=== PATIENT | male | born 1955 | race Caucasian/White ===

== ENCOUNTER → 2017-05-14 | Outpatient (CLI) | payer BC ==
[2017-05-14 08:03] LABS: Basophils # (A) 0.1 k/uL (0-0.2); Basophils % (A) 1 %; CH 33.8; CHCM 34.1; Eosinophils # (A) 0.1 k/uL (0-0.7); Eosinophils % (A) 2 %; HCT 41.1 % (39.0-53.0); HDW 2.37; HGB 13.7 gm/dL (13.0-17.5); Luc % (Auto) 4; Lymphocytes # (A) 1.5 k/uL (1.0-4.8); Lymphocytes % (A) 31 %; MCH 33.1 pg (25.0-35.0); MCHC 33.2 g/dL (31.0-37.0); MCV 99.6 fL (80.0-100.0); Mean Platelet Volume 7.2; Monocytes # (A) 0.4 k/uL (0-1.0); Monocytes % (A) 8 %; Neutrophils # (A) 2.6 k/uL (1.3-7.7); Neutrophils % (A) 53 %; RBC 4.13 m/uL (4.30-5.90); WBC 4.8 k/uL (3.8-10.6)
[2017-05-14 09:10] LABS: ALT 35 U/L (21-72); AST 23 U/L (17-59); Alkaline Phosphatase 52 U/L (38-126); Anion Gap 7 mmol/L; Blood Urea Nitrogen 16 mg/dL (9-20); Carbon Dioxide 28 mmol/L (22-30); Chloride 107 mmol/L (98-107); Cholesterol 179 mg/dL (<200); Glucose 92 mg/dL (74-99); HDL Cholesterol 60 mg/dL (40-60); Non-African American GFR(MDRD) >60 (>60 ml/min/1.73 sqM); Potassium 4.4 mmol/L (3.5-5.1); Sodium 142 mmol/L (137-145); Total Bilirubin 0.8 mg/dL (0.2-1.3); Total Protein 6.8 g/dL (6.3-8.2); Triglycerides 70 mg/dL (<150)
[2017-05-14 09:58] LABS: Hepatitis C Virus IgG Ab Negative (Negative); Hepatitis C Virus IgG Index 0.24
[2017-05-14 11:27] LABS: Prostate Specific Antigen 0.53 ng/mL (0.00-4.00)
== END | disposition home or self-care (01) ==
LOC: LABWHC1 07:09
PROVIDERS: ATTEND Family Medicine
DX: Z00.01 Encounter for general adult medical examination with abnormal findings (principal); Z13.9 Encounter for screening, unspecified
CPT/HCPCS: 36415; 80053; 80061; 84153; 85025; 86803

== ENCOUNTER → 2018-08-14 | Outpatient (CLI) | payer BC ==
[2018-08-14 08:33] LABS: HCT 44.4 % (39.0-53.0); HGB 14.3 gm/dL (13.0-17.5); MCH 33.2 pg (25.0-35.0); MCHC 32.2 g/dL (31.0-37.0); MCV 103.1 fL (80.0-100.0); Macrocytosis Slight; Mean Platelet Volume 6.7; Platelet Count 242 k/uL (150-450); RDW 13.7 % (11.5-15.5); WBC 4.7 k/uL (3.8-10.6)
[2018-08-14 09:03] LABS: Appearance,Urine Clear (Clear); Bilirubin,Urine Negative (Negative); Blood,Urine Negative (Negative); Color,Urine Yellow; Glucose,Urine (UA) Negative (Negative); Ketones,Urine Negative (Negative); Leukocyte Esterase,Urine Negative (Negative); Nitrite,Urine Negative (Negative); Protein,Urine Negative (Negative); Urobilinogen,Urine <2.0 mg/dL (<2.0)
[2018-08-14 10:07] LABS: ALT 33 U/L (21-72); AST 22 U/L (17-59); Albumin 4.1 g/dL (3.5-5.0); Alkaline Phosphatase 53 U/L (38-126); Anion Gap 7 mmol/L; Blood Urea Nitrogen 17 mg/dL (9-20); Calcium 9.2 mg/dL (8.4-10.2); Carbon Dioxide 28 mmol/L (22-30); Chloride 107 mmol/L (98-107); Cholesterol 182 mg/dL (<200); Glucose 94 mg/dL (74-99); HDL Cholesterol 58 mg/dL (40-60); LDL Cholesterol,Calculated 110 mg/dL (0-99); Potassium 4.4 mmol/L (3.5-5.1); Sodium 142 mmol/L (137-145); Total Bilirubin 0.6 mg/dL (0.2-1.3); Total Protein 6.9 g/dL (6.3-8.2); Triglycerides 69 mg/dL (<150)
[2018-08-14 10:34] LABS: Prostate Specific Antigen 0.74 ng/mL (0.00-4.00)
== END | disposition home or self-care (01) ==
LOC: LABWHC1 07:41
PROVIDERS: ATTEND Family Medicine
DX: Z00.01 Encounter for general adult medical examination with abnormal findings (principal); R53.81 Other malaise
CPT/HCPCS: 36415; 80053; 80061; 81003; 82306; 84153; 85027

== ENCOUNTER → 2019-03-11 | Outpatient (CLI) | payer BC ==
--- NOTE | 2019-03-11 15:33 | CONS ---
CONSULTATION DATE OF SERVICE: 03/11/2019 The is a 63-year-old gentleman who has been evaluated in the Sleep Center for possible obstructive sleep apnea-hypopnea syndrome and restless legs syndrome. HISTORY OF PRESENT ILLNESS/SLEEP-WAKE EVALUATION: Patient usual sleep schedule from 10 p.m. to 5:30 a.m. Sometimes he has problem with falling asleep. Has TV set in bedroom. He sleeps on the side position with loud snoring and witnessed episodes of stopped breathing during the sleep. The patient wakes up from sleep 2 times with nocturia and has symptoms of restless legs while falling asleep and also during the night. During the day, patient feels sleepy, has problem with concentration. [place] Sleepiness Scale significantly increased to 10. PAST MEDICAL HISTORY: Positive for anxiety, BPH. MEDICATIONS: None. SOCIAL HISTORY: Positive for smoking about half pack a day for 15 years. Quit about 30 years ago. Alcohol consumption rarely. FAMILY HISTORY: Positive for sleep apnea by his sisters. Positive history of hypertension and stroke, headaches in the family. REVIEW OF SYSTEMS: Awakenings from sleep, sleepiness during the day. PHYSICAL EXAM: gentleman without distress BP 102/64, HR 84, RR 16, height 5 feet 11-1/2 inches, weight 192 pounds. Body mass index 26.4, temperature 97.6, oxygen saturation at room air 97%. OROPHARYNX: Low position of soft palate. Mallampati 4. Restriction of nasal breathing even with slight restriction of nasal breathing bilaterally. NECK: 15 inches in circumference on the physical exam. LUNGS Clear to percussion and to auscultation. Good air exchange. No wheezing or rhonchi. HEART S1, S2 regular. No murmurs, gallops, or rubs. ABDOMEN Soft and nontender. Bowel sounds are present. No organomegaly appreciated. EXTREMITIES No clubbing or cyanosis. INTELLIGENCE DIRECTOR Awake, alert, and oriented X3. Cranial nerves 2 to 7 intact. There is no fasciculation or atrophy. noted. No focal deficits observed. IMPRESSION: 1. Snoring, witnessed episodes of stopped breathing during the sleep, low position of soft palate, multiple awakenings from sleep sleepiness, obstructive sleep apnea- hypopnea syndrome. 2. History of anxiety. Three restless leg symptoms to at night and toe. 3. History of kicking at night periodic limb movement syndrome. 4. BPH. PLAN: 1. Home sleep apnea test for checking of patient's breathing during the sleep. If home sleep apnea test will be negative, polysomnography checking patient's breathing and also to check for restless leg and periodic limb movements. 2. CPAP/BiPAP titration if sleep study confirms obstructive sleep apnea-hypopnea syndrome. 3. Preferable position during sleep on the side. 4. No driving if patient feels any sleepiness. 5. I will see patient for follow up visit to explain results of testing and following plan. Sincerely, Vini Fox MD, PhD, FAASM Diplomat of [employer] Board of Internal Medicine Scaleman of [facility] [place] MMODL / IJN: [id number] /
== END ==
LOC: SLEEP 13:52
PROVIDERS: ATTEND Internal Medicine
DX: G47.33 Obstructive sleep apnea (adult) (pediatric) (principal); G47.61 Periodic limb movement disorder; F41.9 Anxiety disorder, unspecified; N40.0 Benign prostatic hyperplasia without lower urinary tract symptoms; Z87.891 Personal history of nicotine dependence
CPT/HCPCS: 99211

== ENCOUNTER → 2019-07-01 | Outpatient (CLI) | payer BC ==
--- NOTE | 2019-07-01 12:25 | SFUN ---
SLEEP CENTER FOLLOW UP NOTE DATE OF SERVICE: 07/01/2019: A 64-year-old gentleman who has been followed in the Sleep Center for treatment of obstructive sleep apnea-hypopnea syndrome. Recently patient had a home sleep apnea test which showed apnea-hypopnea index 25, and after that patient was started on treatment with AutoPAP. With AutoPAP therapy, patient feel blowing of the air in the abdomen and still sometimes wakes up from sleep with the machine, feel less sleepy than before but still feels sometimes sleepiness. I checked his CPAP unit. Usage is every night 100% and 100% of the time more than 4 hours with average usage 6 hours and 41 minutes. Range of the pressure 5-20 with median pressure 10.7, 95% at 17.0 and maximal 18.8. Apnea-hypopnea index up to 6.1. MEDICATIONS: Occasional Xanax, terazosin. PHYSICAL EXAM: Patient in no distress. BP 99/61, HR 60, RR 16, weight 192, temp 97.4, oxygen saturation at room air 97%. OROPHARYNX: Low position of soft palate. Mallampati 3. Neck Supple, no JVD. Thyroid is not palpable. LUNGS Clear to percussion and to auscultation. Good air exchange. No wheezing or rhonchi. HEART S1, S2 regular. No murmurs, gallops, or rubs. ABDOMEN Soft and nontender. Bowel sounds are present. No organomegaly appreciated. EXTREMITIES No clubbing or cyanosis. INSPECTOR INSULATION Awake, alert, and oriented X3. Cranial nerves 2 to 7 intact. There is no fasciculation or atrophy. noted. No focal deficits observed. IMPRESSION: 1. Moderate obstructive sleep apnea-hypopnea syndrome; apnea-hypopnea index 25 with a 25 central apneas by results of home sleep apnea test on treatment with AutoPap. Patient demonstrated 100% compliance with treatment, but had problems related to the pressure feeling air in his stomach. 2. History of anxiety. 3. Benign prostatic hypertrophy. 4. History of restless leg symptoms improvements at night. PLAN: 1. CPAP titration for evaluation of effective CPAP pressure because patient has some problems without AutoPAP machine and also to check for periodic limb movements. Fitting patient with proper mask because sometimes there is significant leak from the mask. 2. Sleep hygiene with time in bed for 7-1/2, 8 hours. 3. Regards daily to driving. No driving if feeling sleepiness. Thank you very much for allowing me to participate in the management of your patient. Sincerely, Vini Fox MD, PhD, FAASM Diplomat of [employer]ties [employer] Board of Internal Medicine Eye Physician of [facility] [place] MMODL / CARLTONN: [id number] /
== END ==
LOC: SLEEP 11:11
PROVIDERS: ATTEND Internal Medicine
DX: G47.33 Obstructive sleep apnea (adult) (pediatric) (principal); F41.9 Anxiety disorder, unspecified; N40.0 Benign prostatic hyperplasia without lower urinary tract symptoms; G25.81 Restless legs syndrome; Z79.899 Other long term (current) drug therapy

== ENCOUNTER → 2019-08-26 | Outpatient (CLI) | payer BC ==
--- NOTE | 2019-08-26 18:50 | PN ---
PROGRESS NOTE DATE OF SERVICE: 08/26/2019 This patient is a 64-year-old gentleman who has been followed in Sleep Center for treatment of obstructive sleep apnea-hypopnea syndrome. Home sleep apnea test showed obstructive sleep apnea-hypopnea syndrome with apnea-hypopnea index of 25.0. Then patient was started on treatment with AutoPAP with a maximal pressure of 20, and the patient did not tolerate treatment with AutoPAP. He developed discomfort in the chest. We did CPAP titration. During titration, at the pressure 8 cm of water patient's respiration was absolutely normal, and I ordered for him CPAP treatment with a pressure of 8 cm of water. At present the patient is able to use CPAP equipment without any discomfort in the chest, but occasionally he still snores with the machine, according to his . I checked his CPAP unit. CPAP pressure is 8 cm of water. Usage is 28 out of 30 nights, and 26/30 nights for more than 4 hours, with average usage 6.5 hours per night, pressure 7.9 cm of water. Leak is 0 L/minute. Apnea-hypopnea index reading for the last month is 12.7; for the last night 10.8; and total apnea index 9.6; central apnea index 2.7. [place] Sleepiness Scale is 4. MEDICATIONS: Terazosin and Xanax on p.r.n. basis. PHYSICAL EXAMINATION: GENERAL: A pleasant patient in no distress. VITAL SIGNS: BP 105/66, HR 64, RR 16, weight 192, temperature 97.4, oxygen saturation at room air 98%. HEENT: PERRLA, EOMI. Evaluation of oropharynx showed tongue protrudes midline. Low position of soft palate. Mallampati III. NECK: Supple. No JVD. Thyroid is not palpable. LUNGS: Clear to percussion and to auscultation. Good air exchange. No wheezing or rhonchi. HEART: S1, S2 regular. No murmurs, gallops or rubs. ABDOMEN: Soft. No tenderness. EXTREMITIES: No clubbing or cyanosis. ARTISTS' BOOKING REPRESENTATIVE: Awake, alert, and oriented X3. Cranial nerves 2 to 7 intact. There is no fasciculation or atrophy. noted. No focal deficits observed. IMPRESSION: 1. Moderate obstructive sleep apnea-hypopnea syndrome; apnea-hypopnea index 25.0 with 25 central apneas by results of home sleep apnea test, improved on treatment with CPAP at the pressure 8 cm of water. Patient demonstrated great compliance with treatment, benefitting from treatment, but at present his apnea-hypopnea index is still above normal at 12.7 for the last month. 2. Severe periodic limb movements during titration. 3. History of anxiety. 4. History of benign prostatic hypertrophy. 5. History of restless leg symptoms. PLAN: 1. I will change the regimen in his machine to automatic to the maximal pressure of 11 cm of water. 2. The patient will continue to use equipment every night for the whole night. 3. Sleep hygiene with regular time in bed for at least 7-1/2 to 8 hours. 4. No driving if feeling any sleepiness. Thank you very much for allowing me to participate in the management of your patient. Sincerely, Vini Fox MD, PhD, FAASM Diplomat of [employer] Board [employer] Specialties [employer] Board of Internal Medicine Regulatory Affairs Spec of [facility] [place] MMODL / CARLTONN: [id number] /
== END | disposition home or self-care (01) ==
LOC: SLEEP 16:04
PROVIDERS: ATTEND Internal Medicine
DX: G47.33 Obstructive sleep apnea (adult) (pediatric) (principal); Z86.59 Personal history of other mental and behavioral disorders; Z87.438 Personal history of other diseases of male genital organs; Z87.39 Personal history of other diseases of the musculoskeletal system and connective tissue; Z99.89 Dependence on other enabling machines and devices; Z79.899 Other long term (current) drug therapy

== ENCOUNTER → 2021-05-02 | Outpatient (CLI) | payer MEDICARE ==
--- NOTE | 2021-05-02 21:48 | SFUN ---
SLEEP CENTER FOLLOW UP NOTE DATE OF SERVICE: 05/02/2021 65-year-old gentleman who has been followed in Sleep Center for treatment of obstructive sleep apnea-hypopnea syndrome. Last time I saw patient about one and one half years ago. The patient continues to use his CPAP equipment every night. [place] Sleepiness Scale today is 8. I checked CPAP unit. Range of the pressure 5-11. Usage is 30/30 nights for more than 4 hours. Average usage is 6.8 hours per night. Leak is 6 L/minute. Apnea-hypopnea index is 6.1, which is slightly above normal range. MEDICATIONS: 8 mg once a day. PHYSICAL EXAMINATION: GENERAL: gentleman without distress. BP 121/61, HR 68, RR 15, height 5 feet 1-1/2 inches, weight 196.6, body mass index 25.4, temperature 97.7, oxygen saturation at room air 98%. HEENT: PERRLA, EOMI. Oropharynx low position of soft palate. Mallampati 3. NECK: Supple, no JVD. Thyroid is not palpable. LUNGS: Clear to percussion and to auscultation. Good air exchange. No wheezing or rhonchi. HEART: S1, S2 regular. No murmurs, gallops, or rubs. ABDOMEN: Soft and nontender. Bowel sounds are present. No organomegaly appreciated. EXTREMITIES: No clubbing or cyanosis. SALES SOLUTIONS REPRESENTATIVE: Awake, alert, and oriented X3. Cranial nerves 2 to 7 intact. There is no fasciculation or atrophy. noted. No focal deficits observed. IMPRESSION: 1. Obstructive sleep apnea-hypopnea syndrome. Patient demonstrated 100% compliance with treatment benefitting from treatment. Apnea-hypopnea index minimally increased to 6.1. 2. History of anxiety. 3. History of benign prostatic hypertrophy. 4. History of restless leg symptoms. 5. History of periodic limb movements during titration. No significant problem at the present time. PLAN: 1. I adjusted range of the pressure to the maximal level of 12 cm of water, about 2 years ago with a high level of automatic pressure in the machine, patient experiencing discomfort in the chest at that time, a decreased pressure but maximal pressure at that time was 20 and average pressure in the machine was 18.8 cm of water, which is significantly high than it is now. 2. Patient will continue to use PAP equipment every night for the whole night. 3. Sleep hygiene with regular time in bed for at least 7-1/2 to 8 hours. 4. Precautions related to driving. No driving if feeling sleepiness. 5. I will maintain all necessary prescription for PAP supplies including mask, tube, filters. 6. Watching weight. 7. Follow-up visit in 6 months or earlier if patient has any problems. Vini Fox MD, PhD, FAASM Diplomat of [place] [employer] Specialties [employer] Board of Internal Medicine Nurse Navigator of [facility] [place] MMODL / IJN: [id number] /
== END ==
LOC: SLEEP 13:22
PROVIDERS: ATTEND Internal Medicine
DX: G47.33 Obstructive sleep apnea (adult) (pediatric) (principal); F41.9 Anxiety disorder, unspecified; G25.81 Restless legs syndrome; G47.61 Periodic limb movement disorder; Z87.430 Personal history of prostatic dysplasia; Z99.89 Dependence on other enabling machines and devices; Z87.891 Personal history of nicotine dependence

== ENCOUNTER → 2021-05-24 | Outpatient (CLI) | payer MEDICARE ==
--- NOTE | 2021-05-24 12:24 | US ---
EXAMINATION TYPE: US duplex aorta DATE OF EXAM: 05/24/2021 COMPARISON: NONE CLINICAL HISTORY: Z13.6 screening for abdominal aortic aneurysm. EXAM MEASUREMENTS: Abdominal Aorta: Proximal: 2.6 x 2.3 cm Mid: 2.1 x 1.9 cm Distal: 2.0 x 1.8 cm Bifurcation: 1.0 cm 1.0 cm No AAA seen. Small portion of mid aorta not seen due to overlying bowel gas. IMPRESSION: 1. No evidence of abdominal aortic aneurysm.
== END | disposition home or self-care (01) ==
LOC: RADUSWWP 08:46
PROVIDERS: ATTEND Family Medicine
DX: Z13.6 Encounter for screening for cardiovascular disorders (principal)
CPT/HCPCS: 93979

== ENCOUNTER → 2021-10-31 | Outpatient (CLI) | payer MEDICARE ==
--- NOTE | 2021-10-31 22:02 | SFUN ---
SLEEP CENTER FOLLOW UP NOTE DATE OF SERVICE: 10/31/2021 66-year-old gentleman has been followed in Sleep Center for treatment of obstructive sleep apnea-hypopnea syndrome. Patient continued to use his CPAP equipment every night, i.e. I changed his pressure in his machine last time because apnea-hypopnea index increased. Previously I made the pressure less because patient feels discomfort in his chest. For the last several months, the patient slept well, but still occasionally feels some discomfort in the chest, not very often, although. I checked his CPAP unit. Range of the pressure 5-12, average pressure 11.7, usage / nights every 7 hours. Leak is 8 L/minute. Apnea-hypopnea index 8.3, including apnea index 7.3. This is for the last month. For the last 6 months, average pressure 11.6 usage, 164 hours out of 180 nights, average 7 hours per night. Leak is 5 L/minute. Apnea-hypopnea index 7.0. MEDICATIONS: Tamsulosin 0.4 mg once a day. PHYSICAL EXAMINATION: GENERAL: Patient in no distress. BP 109/67, HR 64, RR 18, height 5 feet 11-3/4, weight 184.2, body mass index 25, temperature 97.3, oxygen saturation at room air 99%. Oropharynx: Low position of soft palate, Mallampati 3. NECK: Supple, no JVD. Thyroid is not palpable. LUNGS: Clear to percussion and to auscultation. Good air exchange. No wheezing or rhonchi. HEART: S1, S2 regular. No murmurs, gallops, or rubs. ABDOMEN: Soft and nontender. Bowel sounds are present. No organomegaly appreciated. EXTREMITIES: No clubbing or cyanosis. GUIDANCE DIRECTOR: Awake, alert, and oriented X3. Cranial nerves 2 to 7 intact. There is no fasciculation or atrophy. noted. No focal deficits observed. IMPRESSION: 1. Obstructive sleep apnea-hypopnea syndrome. The patient demonstrated borderline compliance with treatment benefitting from treatment. Still occasional discomfort in the belly and chest after using CPAP. Apnea-hypopnea index in the range of 7-8. 2. History of anxiety. 3. History of benign prostatic hypertrophy. 4. History of restless legs. 5. Periodic limb movements. No significant complaints of leg movements at the present time. PLAN: 1. I decreased the pressure in the machine to the range of 5-11. At that pressure, during previous visit, the patient did not experience any discomfort in the chest. 2. Patient will continue to use PAP equipment every night for the whole night. 3. Sleep hygiene with regular time in bed for at least 7-1/2 to 8 hours. 4. Precautions related to driving. No driving if feeling sleepiness. 5. I will maintain all necessary prescription for PAP supplies including mask, tube, filters. 6. Watching weight. 7. Follow-up visit in 2 months or earlier if patient has any problems. Thank you very much for allowing me to participate in the management of your patient. Sincerely, Vini Fox MD, PhD, FAASM Diplomat of [place] [employer] Specialties Sleep Medicine Board of [place] Board of Internal Medicine Implementation Specialist of [facility] [place] CAS / RICHARD: [id number] /
== END | disposition home or self-care (01) ==
LOC: SLEEP 10:20
PROVIDERS: ATTEND Internal Medicine
DX: G47.33 Obstructive sleep apnea (adult) (pediatric) (principal); N40.1 Benign prostatic hyperplasia with lower urinary tract symptoms; G47.61 Periodic limb movement disorder

== ENCOUNTER → 2021-11-06 | Outpatient (CLI) | payer MEDICARE ==
[2021-11-06 11:21] LABS: Basophils # (A) 0.04 X 10*3/uL (0.00-0.10); Basophils % (A) 0.8 %; Eosinophils # (A) 0.06 X 10*3/uL (0.04-0.35); Eosinophils % (A) 1.2 %; HCT 41.6 % (39.6-50.0); HGB 13.7 g/dL (13.0-17.0); Lymphocytes # (A) 1.72 X 10*3/uL (0.90-5.00); Lymphocytes % (A) 35.2 %; MCH 33.2 pg (27.0-32.0); MCHC 32.9 g/dL (32.0-37.0); MCV 100.7 fL (80.0-97.0); Mean Platelet Volume 10.9 fL (9.5-12.2); Monocytes # (A) 0.63 X 10*3/uL (0.20-1.00); Monocytes % (A) 12.9 %; Neutrophils # (A) 2.43 X 10*3/uL (1.80-7.70); Neutrophils % (A) 49.7 %; Platelet Count 186 X 10*3/uL (140-440); RBC 4.13 X 10*6/uL (4.40-5.60); RDW 14.2 % (11.5-14.5); WBC 4.89 X 10*3/uL (4.50-10.00)
[2021-11-06 12:07] LABS: Chol/HDL Ratio 2.89 Ratio; LDL Cholesterol,Calculated 111.6 mg/dL (0.0-131.0); VLDL Calculation 11.26 mg/dL (5.00-40.00)
[2021-11-06 12:27] LABS: ALT 27 U/L (10-49); AST 28 U/L (14-35); African American GFR (CKD) 91.7 (60.0-200.0); Albumin 4.3 g/dL (3.8-4.9); Albumin/Globulin Ratio 1.91 (1.60-3.17); Alkaline Phosphatase 59 U/L (41-126); BUN/Creat Ratio 17.09 Ratio (12.00-20.00); Calcium 8.8 mg/dL (8.7-10.3); Carbon Dioxide 24.2 mmol/L (20.0-27.5); Chloride 104 mmol/L (96-109); Globulin 2.3 g/dL (1.6-3.3); Glucose 88 mg/dL (70-110); Non-African American GFR(CKD) 79.1 (60.0-200.0); Potassium 4.8 mmol/L (3.5-5.5); Sodium 140 mmol/L (135-145); Total Protein 6.6 g/dL (6.2-8.2)
== END | disposition home or self-care (01) ==
LOC: LABWHC1 07:31
PROVIDERS: ATTEND Family Medicine
DX: Z00.00 Encounter for general adult medical examination without abnormal findings (principal)
CPT/HCPCS: 36415; 80053; 80061; 85025

== ENCOUNTER → 2021-12-27 | Outpatient (CLI) | payer MEDICARE ==
--- NOTE | 2021-12-27 13:00 | SFUN ---
SLEEP CENTER FOLLOW UP NOTE DATE OF SERVICE: 12/27/2021 This 66-year-old gentleman has been followed in Sleep Center for treatment of obstructive sleep apnea-hypopnea syndrome. I saw this patient about 2 months ago. At that time he did complain of some chest discomfort while using his CPAP equipment, and I slightly decreased pressure in the CPAP unit. After pressure was changed, the patient does not have any chest discomfort. He continues to use his CPAP equipment every night. He sleeps better with the machine than without the machine and feels better during the day. [place] Sleepiness Scale today is 8, which is normal. I checked his CPAP unit. Range of the pressure is 5 to 11, average pressure 10.9, usage 30/30 nights. Average 7.3 hours per night, which is great compliance. Leak is 5 L/minute, which is normal. Apnea-hypopnea index is slightly increased to 8.6, which includes central apnea-hypopnea index 1.2. During the previous visit, apnea-hypopnea index was 7.0. Subsequently it is slightly increased, but again the patient does not have any chest discomfort with CPAP after pressure was decreased. MEDICATIONS: 1. Tamsulosin 0.4 mg once a day. 2. Citalopram 10 mg once a day. Citalopram was not started yet. He will start it tomorrow. PHYSICAL EXAMINATION: GENERAL: Pleasant patient in no distress. VITAL SIGNS: BP 116/68, HR 67, RR 16, weight 187, temperature 96.2, oxygen saturation at room air 99%. HEENT: PERRLA, EOMI, evaluation of oropharynx showed tongue protrudes midline. Low position of soft palate; Mallampati III. NECK: Supple, no JVD. Thyroid is not palpable. LUNGS: Clear to percussion and to auscultation. Good air exchange. No wheezing or rhonchi. HEART: S1, S2 regular. No murmurs, gallops, or rubs. ABDOMEN: Soft and nontender. Bowel sounds are present. No organomegaly appreciated. EXTREMITIES: No clubbing or cyanosis. VISITOR SERVICE ASSISTANT: Awake, alert, and oriented X3. Cranial nerves 2 to 7 intact. There is no fasciculation or atrophy. noted. No focal deficits observed. IMPRESSION: 1. Obstructive sleep apnea-hypopnea syndrome with several central events. The patient demonstrated 100% compliance with treatment. Apnea-hypopnea index is slightly increased to 8.6, including central apnea-hypopnea index 1.2. No chest discomfort after pressure was decreased. Slight increasing of apnea-hypopnea index compared with the previous visit after pressure was decreased, but again it was necessary because patient developed chest discomfort. 2. History of anxiety. 3. History of benign prostatic hypertrophy. 4. History of restless legs. 5. Periodic limb movements. No significant complaints about periodic limb movements at the present time. PLAN: 1. Patient will continue to use PAP equipment every night for the whole night. 2. Sleep hygiene with regular time in bed for at least 7-1/2 to 8 hours. 3. Precautions related to driving. No driving if feeling sleepiness. 4. I will maintain all necessary prescription for PAP supplies including mask, tube, filters. 5. Watching weight. 6. Follow-up visit in 6 months or earlier if patient has any problems. Thank you very much for allowing me to participate in the management of your patient. Sincerely, Vini Fox MD, PhD, FAASM Diplomat of [employer] Board [employer] Specialties Sleep Medicine Board of [place] Board of Internal Medicine Muck Hauler of [facility] [place] MMODL / CARLTONN: [id number] /
== END | disposition home or self-care (01) ==
LOC: SLEEP 11:16
PROVIDERS: ATTEND Internal Medicine
DX: G47.33 Obstructive sleep apnea (adult) (pediatric) (principal); Z86.59 Personal history of other mental and behavioral disorders; Z87.438 Personal history of other diseases of male genital organs

== ENCOUNTER → 2022-11-07 | Outpatient (CLI) | payer MEDICARE ==
--- NOTE | 2022-11-07 16:53 | P.PN ---
Subjective DATE: 11/07/2022 FOLLOW UP VISIT. Patient with obstructive sleep apnea hypopnea syndrome return to sleep center for follow-up visit. Information from previous visit have been reviewed. During previous visit I reduced the CPAP pressure, because patient experienced discomfort in his chest after using CPAP at that time. Presently no discomfort in the chest after using CPAP, patient feels comfortable. Patient is using PAP equipment every night for the whole night, getting PAP supplies in time. The patient does not have significant problems with the mask, PAP unit and humidification. [place] sleepiness scale is 8, which is in normal range. I checked information from PAP unit. PAP unit pressure 5-10 cm H2O. Usage is 98 % for more then 4 hours, average 6.8 hours per night. Leak is 4l/m, which is in acceptable range. Apnea Hypopnea Index is 6.4, which is slightly increased but better than during previous visit. MEDICATIONS:1. Tamsulosin 0.4 mg once a day During physical exam: GENERAL: A pleasant patient without any distress. VITAL SIGNS: BP 119/67, HR 66, RR 16, weight 185, temperature 97.6, oxygen saturation at room air 99 % . HEENT: PERRLA, EOMI.low position of soft palate, Mallapati 3. NECK: Supple. No JVD. LUNGS: Clear to percussion and to auscultation. Good air exchange. No wheezing or rhonchi. HEART: S1, S2 regular. ABDOMEN: Soft and nontender.[] EXTREMITIES: No clubbing or cyanosis. HOLE DIGGER OPERATOR: Awake, alert, and oriented x3. No focal deficit. Impressions: 1. Obstructive sleep apnea-hypopnea syndrome. Patient demonstrated great compliance with treatment, benefiting from treatment. 2. History of anxiety. 3. History of periodic limb movements, no complaints of the present time. 4. BPH. 5. History of restless legs, no complaints at the present time. Plan: 1. Continue using PAP equipment every night for the whole night with the same range of pressure 5-10 cm of water. 2. To change air filter at least 1-2 times per month. 3. PAP unit should stay lower then position of the head. 4. Advised patient to remove all remaining water from humidifier canister daily and make it dry after each usage. Refill canister with fresh distilled water before each usage. 5. Sleep hygiene with regular time in bed for at least 8 hours. 6. Precautions related to driving. No driving if feel any sleepiness. 7. I will maintain prescription for PAP supplies including mask, tube, filters. 8. Follow up visit in 6 months or earlier if patient has any problems. 9. Watching weight. Thank you very much for allowing me to participate in the management of your patient. Vini Fox MD, PhD, FAASM. Diplomat of [place] [employer] Sleep Medicine, Sleep Medicine Board by [place] [employer] of Internal Medicine Supervisor Se[place] of [facility] [place]
== END ==
LOC: SLEEP 16:26
PROVIDERS: ATTEND Internal Medicine
DX: G47.33 Obstructive sleep apnea (adult) (pediatric) (principal); Z99.89 Dependence on other enabling machines and devices; F41.9 Anxiety disorder, unspecified; G47.61 Periodic limb movement disorder; N40.0 Benign prostatic hyperplasia without lower urinary tract symptoms; G25.81 Restless legs syndrome; Z87.891 Personal history of nicotine dependence
CPT/HCPCS: 99212

== ENCOUNTER → 2023-08-06 | Outpatient (CLI) | payer MEDICARE ==
--- NOTE | 2023-08-06 17:52 | P.PN ---
Subjective DATE: 08/06/2023 FOLLOW UP VISIT. Patient with obstructive sleep apnea hypopnea syndrome return to sleep center for follow-up visit. Information from previous visit have been reviewed. Patient is using PAP equipment every night for the whole night, getting PAP supplies in time. The patient does not have significant problems with the mask, PAP unit and humidification. [place] sleepiness scale is 9, which is borderline. I checked information from PAP unit. PAP unit pressure 5-10, average 9.9 cm H2O. Usage is 90 % for more then 4 hours, average 6.9 hours per night. Leak is 5 l/m, which is in acceptable range. Apnea Hypopnea Index is 7.7, which is slightly increased. MEDICATIONS:1. Terazosin 6 mg once a day During physical exam: GENERAL: A pleasant patient without any distress. VITAL SIGNS: BP 110/64, HR 68, RR 16 , weight 184.8, temperature 97.5, oxygen saturation at room air 96 % . HEENT: PERRLA, EOMI.low position of soft palate, Mallapati 3 . NECK: Supple. No JVD. LUNGS: Clear to percussion and to auscultation. Good air exchange. No wheezing or rhonchi. HEART: S1, S2 regular. ABDOMEN: Soft and nontender.[] EXTREMITIES: No clubbing or cyanosis. FREELANCE TRANSLATOR: Awake, alert, and oriented x3. No focal deficit. Impressions: 1. Obstructive sleep apnea-hypopnea syndrome. Patient demonstrated great compliance with treatment, benefiting from treatment. 2. History of anxiety. 3. BPH. 4. History of restless leg symptoms, no significant problems at the present time. 5. History of periodic limb movements, no complaints. Plan: 1. Continue using PAP equipment every night for the whole night. 2. To change air filter at least 1-2 times per month. 3. PAP unit should stay lower then position of the head. 4. Advised patient to remove all remaining water from humidifier canister daily and make it dry after each usage. Refill canister with fresh distilled water before each usage. 5. Sleep hygiene with regular time in bed for at least 8 hours. 6. Precautions related to driving. No driving if feel any sleepiness. 7. I will maintain prescription for PAP supplies including mask, tube, filters. 8.Watching weight. 9. Follow up visit in 6 months or earlier if patient has any problems. Thank you very much for allowing me to participate in the management of your patient. Vini Fox MD, PhD, FAASM. Diplomat of [employer] Board [employer] Sleep Medicine, Sleep Medicine Board by [employer] Board of Internal Medicine Advertising Campaign Manager of [facility] [place]
== END ==
LOC: 3 N SLEEP 13:46
PROVIDERS: ATTEND Internal Medicine
DX: G47.33 Obstructive sleep apnea (adult) (pediatric) (principal); F41.9 Anxiety disorder, unspecified; N40.0 Benign prostatic hyperplasia without lower urinary tract symptoms; G25.81 Restless legs syndrome; G47.61 Periodic limb movement disorder; Z99.89 Dependence on other enabling machines and devices; Z87.891 Personal history of nicotine dependence
CPT/HCPCS: 99212

== ENCOUNTER 2023-10-22 10:16 | Day surgery (SDC) | payer MEDICARE ==
[2023-10-20 15:12] VITALS: BMI 24.7
[2023-10-22] MEDS ORDERED: LACTATED RINGERS 1,000 ML IV SCH (10:53)
[2023-10-22] MEDS ORDERED: LIDOCAINE 1% (10MG/ML) FOR IV START INTRADERMA PRN (10:53)
[2023-10-22] MEDS ORDERED: LACTATED RINGERS 1,000 ML IV ONE (11:06)
[2023-10-22 11:29] VITALS: TEMP 97.1
[2023-10-22] MEDS ORDERED: LIDOCAINE 1% INJ 10MG/ML (20 ML MDV) ONE (11:50)
[2023-10-22] MEDS ORDERED: PROPOFOL 10 MG/ML 20 ML VIAL IV ONE (11:50)
--- NOTE | 2023-10-22 12:08 | P.PCN ---
Date of Procedure: 10/22/23 Procedure(s) Performed: BRIEF HISTORY: Patient is a 68-year-old pleasant white male scheduled for an elective colonoscopy as a part of screening for colon cancer PROCEDURE PERFORMED: Colonoscopy. PREOPERATIVE DIAGNOSIS: Screening for colon cancer. IV sedation per Anesthesia. PROCEDURE: After informed consent was obtained, the patient, was brought into the endoscopy unit. IV sedation was administered by Anesthesia under continuous monitoring. Digital rectal examination was normal. Initially the Olympus CF-160 flexible video colonoscope was then inserted in the rectum, gradually advanced into the cecum without any difficulty. Careful examination was performed as the scope was gradually being withdrawn. Ileocecal valve and the appendiceal orifice were visualized and appeared normal. Prep was fair.. Mucosa of the cecum, ascending colon, transverse colon, descending colon, sigmoid colon, and rectum appeared normal. Retroflexion was performed in the rectum and no lesions were seen. The patient tolerated the procedure well. IMPRESSION: Normal-appearing colon from rectum to cecum with no evidence of colorectal neoplasia. RECOMMENDATIONS: Findings of this examination were discussed with the patient as well as his family. He was advised to have a repeat screening colonoscopy in 10 years..
[2023-10-22 12:40] VITALS: BP 98/54; PULSE 59; RESP 14
== END 2023-10-22 12:56 | disposition home or self-care (01) ==
LOC: ORWHC2ENDO 10:16
PROVIDERS: ATTEND Internal Medicine Gastroenterology
DX: Z12.11 Encounter for screening for malignant neoplasm of colon (principal); G47.33 Obstructive sleep apnea (adult) (pediatric); N40.0 Benign prostatic hyperplasia without lower urinary tract symptoms; K21.9 Gastro-esophageal reflux disease without esophagitis; F41.9 Anxiety disorder, unspecified; F32.A Depression, unspecified; Z79.899 Other long term (current) drug therapy; Z87.891 Personal history of nicotine dependence
CPT/HCPCS: J2001; J2704; G0121

== ENCOUNTER → 2024-02-12 | Outpatient (CLI) | payer MEDICARE ==
[2024-02-12 14:52] VITALS: BP 99/61; PULSE 70; RESP 16; TEMP 98
--- NOTE | 2024-02-12 15:16 | P.PN ---
Subjective DATE: 02/12/2024 FOLLOW UP VISIT. Patient with obstructive sleep apnea hypopnea syndrome return to sleep center for follow-up visit. Information from previous visit have been reviewed. Patient is using PAP equipment every night for the whole night, getting PAP supplies in time. Patient feels some pressure in the chest while using CPAP equipment. [place] sleepiness scale is 4. I checked information from PAP unit. PAP unit pressure 5-12, average 11.2 cm H2O. Usage is 100% for more then 4 hours, average 7 hours per night. Leak is 6 l/m, which is in acceptable range. Apnea Hypopnea Index is 6.1, which decreased comparing with previous visit when it was 7.7 and I increased pressure from maximal 10 to maximal 12. MEDICATIONS:1. Terazosin 10 mg once a day During physical exam: GENERAL: A pleasant patient without any distress. VITAL SIGNS: Please see below. Body mass index 25.2 HEENT: PERRLA, EOMI.low position of soft palate, Mallapati 3 . NECK: Supple. No JVD. LUNGS: Clear to percussion and to auscultation. Good air exchange. No wheezing or rhonchi. HEART: S1, S2 regular. ABDOMEN: Soft and nontender.[] EXTREMITIES: No clubbing or cyanosis. CRAP SHOOTER: Awake, alert, and oriented x3. No focal deficit. Impressions: 1. Obstructive sleep apnea-hypopnea syndrome. Patient demonstrated great compli ance with treatment, benefiting from treatment. Patient developed some feeling of pressure in the chest while using CPAP. 2. History of anxiety. 3. BPH. 4. History of restless leg, no clinical problems at the present time. 5. History of periodic limb movements, no complaints at the present time. I decreased level of pressure to the range 5 to 10 cm of water, because patient developed some discomfort in the chest while using CPAP Plan: 1. Continue using PAP equipment every night for the whole night. 2. To change air filter at least 1-2 times per month. 3. PAP unit should stay lower then position of the head. 4. Advised patient to remove all remaining water from humidifier canister daily and make it dry after each usage. Refill canister with fresh distilled water before each usage. 5. Sleep hygiene with regular time in bed for at least 8 hours. 6. Precautions related to driving. No driving if feel any sleepiness. 7. I will maintain prescription for PAP supplies including mask, tube, filters. 8. Follow up visit in 3 months or earlier if patient has any problems. 9. Watching weight. Thank you very much for allowing me to participate in the management of your patient. Vini Fox MD, PhD, FAASM. Diplomat of [place] [employer], Sleep Medicine Board by [place] [employer] Acid Conditioner [facility] [place] Objective - Vital Signs Vital signs: Vital Signs Temp 98.0 F 02/12/24 14:36 Pulse 70 02/12/24 14:36 Resp 16 02/12/24 14:36 BP 99/61 02/12/24 14:36 Pulse Ox 97 02/12/24 14:36 FiO2 Intake & Output 02/11/24 02/12/24 02/12/24 18:59 06:59 18:59 Weight 82.1 kg
== END ==
LOC: 3 N SLEEP 13:39
PROVIDERS: ATTEND Internal Medicine
DX: G47.33 Obstructive sleep apnea (adult) (pediatric) (principal); F41.9 Anxiety disorder, unspecified; N40.0 Benign prostatic hyperplasia without lower urinary tract symptoms; Z87.39 Personal history of other diseases of the musculoskeletal system and connective tissue; Z99.89 Dependence on other enabling machines and devices; Z87.891 Personal history of nicotine dependence
CPT/HCPCS: 99212

== ENCOUNTER → 2024-09-09 | Outpatient (CLI) | payer MEDICARE ==
[2024-09-09 14:24] VITALS: BP 103/49; PULSE 64; RESP 16; TEMP 98
--- NOTE | 2024-09-09 15:50 | P.PROGSL ---
Subjective DATE: 09/09/2024 FOLLOW UP VISIT. Patient with obstructive sleep apnea hypopnea syndrome return to sleep center for follow-up visit. Information from previous visit have been reviewed. Patient is using PAP equipment every night for the whole night, getting PAP supplies in time. The patient does not have significant problems with the mask, PAP unit and humidification. Abbott sleepiness scale is 4, which is normal. I checked information from PAP unit. PAP unit pressure 5-10 cm H2O. Usage is 100% for more then 4 hours, average 7.4 hours per night. Leak is 6 l/m, which is in acceptable range. Apnea Hypopnea Index is 6.4, which is borderline. MEDICATIONS have been reviewed, please see below. During physical exam: GENERAL: A pleasant patient without any distress. VITAL SIGNS: Please see below, weight is 178 lbs. HEENT: PERRLA, EOMI.low position of soft palate, Mallapati 3. NECK: Supple. No JVD. LUNGS: Clear to percussion and to auscultation. Good air exchange. No wheezing or rhonchi. HEART: S1, S2 regular. ABDOMEN: Soft and nontender.[] EXTREMITIES: No clubbing or cyanosis. ARM MAKER: Awake, alert, and oriented x3. No focal deficit. Impressions: 1. Obstructive sleep apnea-hypopnea syndrome. Patient demonstrated great compliance with treatment, benefiting from treatment. No any chest discomfort after pressure in CPAP unit was decreased during previous visit. 2. History of anxiety. 3. BPH. 4. History of periodic limb movements, no complaints at the present time. 5. History of RLS, no complaints. Plan: 1. Continue using PAP equipment every night for the whole night with the same level of pressure. 2. Sleep hygiene with regular time in bed for at least 7.5-8 hours 3. PAP unit should stay lower then position of the head. 4. Advised patient to remove all remaining water from humidifier canister daily and make it dry after each usage. Refill canister with fresh distilled water before each usage. 5. Watching weight. 6. Precautions related to driving. No driving if feel any sleepiness. 7. I will maintain prescription for PAP supplies including mask, tube, filters. 8. Follow up visit in 8 months or earlier if patient has any problems. Thank you very much for allowing me to participate in the management of your patient. Vini Fox MD, PhD, FAASM. Diplomat of [place] [employer], Sleep Medicine Board by [place] [employer] Health Sciences Manager of [facility] [place] cc: Ashutosh Alvarado MD Objective - Vital Signs Vital Signs: Vital Signs Temp 98 F 09/09/24 14:23 Pulse 64 09/09/24 14:23 Resp 16 09/09/24 14:23 BP 103/49 09/09/24 14:23 Pulse Ox 98 09/09/24 14:23 FiO2 Intake & Output 09/08/24 09/09/24 09/09/24 18:59 06:59 18:59 Weight 80.739 kg Home Medications: Home Medications Medication Instructions Recorded Confirmed Type Terazosin [Hytrin] 8 mg PO W/SUPPER 10/17/17 09/09/24 History Ascorbic Acid [Vitamin C] 1,000 mg PO DAILY 10/20/23 09/09/24 History Calcium Carbonate/Vitamin D3 1 tab PO DAILY 10/20/23 09/09/24 History [Calcium 500 mg Chewable Tablet] Cholecalciferol [Vitamin D3 (25 25 mcg PO DAILY 10/20/23 09/09/24 History Mcg = 1000 Iu)] Magnesium Citrate 200 mg PO BID 10/20/23 09/09/24 History Mv-Min/Folic/K1/Lycopen/Lutein 2 each PO DAILY 10/20/23 09/09/24 History [Centrum Silver Men Tablet] Ubidecarenone [Co Q-10] 200 mg PO DAILY 10/20/23 09/09/24 History
== END ==
LOC: 3 N SLEEP 13:52
PROVIDERS: ATTEND Internal Medicine
CPT/HCPCS: 99212

== ENCOUNTER → 2024-10-05 | Outpatient (CLI) | payer MEDICARE ==
--- NOTE | 2024-10-05 08:38 | US ---
EXAMINATION TYPE: US abdomen complete DATE OF EXAM: 10/05/2024 COMPARISON: NONE CLINICAL INDICATION: Male, 69 years old with history of UNSPECIFIED ABDOMINAL PAIN; TECHNIQUE: Grayscale and color Doppler imaging of the abdomen was performed. FINDINGS: EXAM MEASUREMENTS: Liver Length: 16.0 cm Gallbladder Wall: 0.2 cm CBD: 0.2 cm Spleen: n/a Right Kidney: 11.9 x 4.8 x 5.1 cm Left Kidney: 10.5 x 4.5 x 4.9 cm Pancreas: obscured by overlying midline bowel gas Liver: wnl Gallbladder: wnl Evidence for sonographic Brooks's sign: no CBD: visualized portions wnl, limited by overlying bowel gas Spleen: obscured by overlying bowel gas Right Kidney: multiple cystic areas with largest measuring 2.8cm inferior pole Left Kidney: 1.2cm cystic areas inferior pole Upper IVC: wnl Abd Aorta: proximal and mid portions obscured by overlying midline bowel gas, distal portion wnl The liver is homogenous. The intrahepatic portion of the IVC and proximal abdominal aorta are within normal limits. There is no evidence of cholelithiasis. Common bile duct is unremarkable. The visu alized portions of the pancreas are homogenous. The spleen is unremarkable. Kidneys are symmetric a nd free of hydronephrosis. No renal lesions are seen. IMPRESSION: 1. No evidence for acute process. 2. Bilateral renal cysts. [facility] Doug Newman, , 10/05/2024 8:35 AM
== END | disposition home or self-care (01) ==
LOC: RADUSWWP 07:47
PROVIDERS: ATTEND Family Medicine
DX: N28.1 Cyst of kidney, acquired (principal); R10.9 Unspecified abdominal pain
CPT/HCPCS: 76700

== ENCOUNTER → 2024-11-04 | Outpatient (CLI) | payer MEDICARE ==
[2024-11-05 02:38] LABS: Albumin 4.6 g/dL (3.8-4.9); Blood Urea Nitrogen 19.6 mg/dL (9.0-27.0); Calcium 9.2 mg/dL (8.7-10.3); Carbon Dioxide 26.2 mmol/L (21.6-31.8); Chloride 105 mmol/L (96-109); Glucose 109 mg/dL (70-110); Phosphorus 2.9 mg/dL (2.4-5.1); Sodium 141 mmol/L (135-145)
== END | disposition home or self-care (01) ==
LOC: LABWHC1 16:31
PROVIDERS: ATTEND Family Medicine
DX: R10.9 Unspecified abdominal pain (principal)
CPT/HCPCS: 36415; 80069